=== PATIENT | female | born 1955 | race Caucasian/White ===

== ENCOUNTER 2017-02-05 06:37 | Day surgery (SDC) | payer OTHER ==
[~2017-02-05 06:37] MED LIST: ACIPHEX20 MG PO; CIPRO250 MG PO; COUMADIN5 MG PO; COUMADIN6 MG PO; ELIQUIS5 MG PO; FLUDROCORTISON0.1 M1 PO; MIDODRINE HCL10 MG PO; NABI650T PO; PREDNISONE10 MG PO; PRILOSEC OTC20 MG PO; RENVELA0.8 GM PO; SENSIPAR30 MG PO; SODIUM BICARBO325 MG PO; WARFARIN SODIUM5 MG PO; WARFARIN SODIUM6 MG PO
[2017-02-05] MEDS ORDERED: PREDNISONE5 MG PO (07:28)
[2017-02-05 09:02] LABS: METH RESISTANT S AUREUS PCR POSITIVE (NEGATIVE)
[2017-02-05 09:03] LABS: PROBE CHECK PASS
== END 2017-02-05 09:35 | disposition home or self-care (01) ==
LOC: CATH 06:37
PROVIDERS: Surgery
PROC: 067 Lower Veins, Dilation (ICD-10-PCS; principal; 2017-02-05)
PROC: B51W1ZZ Fluoroscopy of Dialysis Shunt/Fistula using Low Osmolar Contrast (ICD-10-PCS; principal; 2017-02-05)
PROC: 05HY33Z Insertion of Infusion Device into Upper Vein, Percutaneous Approach (ICD-10-PCS; principal; 2017-02-05)
PROC: 3E03317 Introduction of Other Thrombolytic into Peripheral Vein, Percutaneous Approach (ICD-10-PCS; principal; 2017-02-05)
DX: T82.858A Stenosis of other vascular prosthetic devices, implants and grafts, initial encounter (principal); Y83.2 Surgical operation with anastomosis, bypass or graft as the cause of abnormal reaction of the patient, or of later complication, without mention of misadventure at the time of the procedure; E11.22 Type 2 diabetes mellitus with diabetic chronic kidney disease; N18.6 End stage renal disease; Z99.2 Dependence on renal dialysis; M19.90 Unspecified osteoarthritis, unspecified site; E07.9 Disorder of thyroid, unspecified; Z88.1 Allergy status to other antibiotic agents; Z91.041 Radiographic dye allergy status; Z79.01 Long term (current) use of anticoagulants
CPT/HCPCS: 87641; C1725; C1769; C1894; J1644